=== PATIENT | female | born 1995 | race Caucasian/White ===

== ENCOUNTER 2016-10-02 05:58 | Inpatient (IN) | payer MEDICAID ==
[~2016-10-02] VITALS: Ht 157.5 cm; Wt 95.0 kg
[~2016-10-02 05:58] MED LIST: IRON1TAB60 PO; OXYC-302 PO
[2016-10-02] MEDS: OXYTOCIN 30U/ 0.9% NaCL 500ML 500 ML IV SCH ×4 (06:06→18:55)
[2016-10-02] MEDS: LACTATED RINGERS 1,000 ML IV SCH ×6 (06:06→18:55)
[2016-10-02] MEDS ORDERED: LACTATED RINGERS 1,000 ML IV SCH (06:10)
[2016-10-02] MEDS ORDERED: NEWBORN KIT ONE (06:14)
[2016-10-02] MEDS ORDERED: SODIUM CITRATE/CITRIC ACID 30 ML UDC ONE (06:14)
[2016-10-02] MEDS ORDERED: METOCLOPRAMIDE 5 MG/ML, 2ML ONE (06:14)
[2016-10-02 06:15] VITALS: BP 118/63
[2016-10-02] MEDS: SODIUM CITRATE/CITRIC ACID 30 ML UDC PO ONE ×2 (06:30→07:35)
[2016-10-02] MEDS ORDERED: LACTATED RINGERS 1,000 ML IVBOLUS ONE (06:30)
[2016-10-02] MEDS: METOCLOPRAMIDE 5 MG/ML, 2ML IV ONE ×2 (06:30→07:35)
[2016-10-02] MEDS ORDERED: OXYTOCIN 30U/ 0.9% NaCL 500ML 500 ML ONE (07:03)
[2016-10-02] MEDS ORDERED: FENTANYL PF 100 MCG/2ML IV PRN (07:30)
[2016-10-02] MEDS ORDERED: EPHEDRINE 50 MG/ML, 1ML IVPush PRN (07:30)
[2016-10-02] MEDS ORDERED: PROMETHAZINE 25 MG/ML, 1ML IV PRN (07:30)
[2016-10-02] MEDS ORDERED: ONDANSETRON 2MG/ML, 2ML IVPush PRN (07:30)
[2016-10-02] MEDS ORDERED: MEPERIDINE/PF 25MG/0.5ML IVPush PRN (07:30)
[2016-10-02] MEDS ORDERED: OXYcodone 5 MG/5 ML ORAL.SOL UDC PO PRN (07:30)
[2016-10-02] MEDS ORDERED: RHOGAM FROM BLOOD BANK 1 NOTE EA IM/IV ONE (09:00)
[2016-10-02] MEDS ORDERED: OXYcodone/APAP 5/325MG TABLET PO PRN (09:00)
[2016-10-02] MEDS ORDERED: SIMETHICONE 80 MG CHEW TAB PO PRN (09:00)
[2016-10-02] MEDS ORDERED: DIPH,PERTUSS(ACELL),TET VAC/PF NC IM-VACC PRN (09:00)
[2016-10-02] MEDS ORDERED: MEASLES,MUMPS&RUBELLA VACC/PF 0.5 ML SQ-VACC PRN (09:00)
[2016-10-02] MEDS ORDERED: MISOPROSTOL 200 MCG TABLET PR PRN (09:00)
[2016-10-02] MEDS ORDERED: morphine SULFATE 10 MG/ML, 1ML IVPush PRN (09:00)
[2016-10-02] MEDS ORDERED: ONDANSETRON 2MG/ML, 2ML IV PRN (09:00)
[2016-10-02] MEDS ORDERED: CALCIUM CARBONATE 500 MG TAB.CHEW PO PRN (09:00)
[2016-10-02] MEDS: PRENATAL VIT/IRON/FA 1 EACH TABLET PO SCH (09:00)
[2016-10-02] MEDS ORDERED: OXYcodone 5 MG/5 ML ORAL.SOL UDC ONE (09:48)
[2016-10-02] MEDS ORDERED: MORPHINE SULFATE 4 MG/ML, 1ML ONE (10:17)
[2016-10-02] MEDS: morphine SULFATE 10 MG/ML, 1ML IV PRN ×2 (10:22→10:40)
[2016-10-02 11:00] VITALS: BP 113/65
[2016-10-02] MEDS: KETOROLAC 30 MG/1 ML IV SCH ×3 (11:45→23:33)
[2016-10-02] MEDS: OXYcodone IR 5MG TABLET PO PRN ×3 (14:05→22:04)
[2016-10-02 17:35] VITALS: BP 106/58
[2016-10-02 21:00] VITALS: BP 99/56
[2016-10-02] MEDS: DOCUSATE 100 MG CAPSULE PO PRN (22:04)
[2016-10-03] MEDS: LACTATED RINGERS 1,000 ML IV SCH ×3 (00:55→08:55)
[2016-10-03 01:00] VITALS: BP 107/66
[2016-10-03] MEDS: DOCUSATE 100 MG CAPSULE PO PRN ×3 (02:37→20:05)
[2016-10-03] MEDS: OXYcodone IR 5MG TABLET PO PRN ×5 (02:37→20:13)
[2016-10-03 04:30] VITALS: BP 108/60
[2016-10-03] MEDS: OXYTOCIN 30U/ 0.9% NaCL 500ML 500 ML IV SCH (04:55)
[2016-10-03] MEDS: KETOROLAC 30 MG/1 ML IV SCH ×4 (05:25→23:37)
[2016-10-03 07:20] VITALS: BP 90/51
[2016-10-03] MEDS: PRENATAL VIT/IRON/FA 1 EACH TABLET PO SCH (07:25)
[2016-10-03 19:00] VITALS: BP 99/49
[2016-10-04] MEDS: OXYcodone IR 5MG TABLET PO PRN ×5 (02:17→21:49)
[2016-10-04] MEDS: KETOROLAC 30 MG/1 ML IV SCH (05:19)
[2016-10-04 07:45] VITALS: BP 104/59
[2016-10-04] MEDS: PRENATAL VIT/IRON/FA 1 EACH TABLET PO SCH (07:54)
[2016-10-04] MEDS: DOCUSATE 100 MG CAPSULE PO PRN ×2 (07:54→21:49)
[2016-10-04] MEDS: IBUPROFEN 600 MG TABLET PO PRN ×3 (11:17→23:57)
[2016-10-04 20:00] VITALS: BP 110/55
[2016-10-05] MEDS: OXYcodone IR 5MG TABLET PO PRN ×3 (02:08→12:19)
[2016-10-05] MEDS: IBUPROFEN 600 MG TABLET PO PRN ×2 (06:24→12:19)
[2016-10-05] MEDS ORDERED: IBUP-1222 PO (07:33)
[2016-10-05 08:15] VITALS: BP 100/62
[2016-10-05] MEDS: DOCUSATE 100 MG CAPSULE PO PRN (08:17)
[2016-10-05] MEDS: PRENATAL VIT/IRON/FA 1 EACH TABLET PO SCH (08:17)
== END 2016-10-05 12:59 | disposition home or self-care (01) | DRG 766 ==
LOC: LDIP 05:58 → 2NW 10:44
PROVIDERS: ADMIT Obstetrics & Gynecology Gynecology; ATTEND Obstetrics & Gynecology Gynecology
PROC: 10D00Z1 Extraction of Products of Conception, Low, Open Approach (ICD-10-PCS; principal; 2016-10-02)
DX: O34.211 Maternal care for low transverse scar from previous cesarean delivery (principal); O99.824 Streptococcus B carrier state complicating childbirth; O99.344 Other mental disorders complicating childbirth; F32.9 Major depressive disorder, single episode, unspecified; O99.52 Diseases of the respiratory system complicating childbirth; J45.909 Unspecified asthma, uncomplicated; Z37.0 Single live birth; Z3A.39 39 weeks gestation of pregnancy; Z79.899 Other long term (current) drug therapy; Z80.3 Family history of malignant neoplasm of breast; Z80.41 Family history of malignant neoplasm of ovary; Z81.8 Family history of other mental and behavioral disorders
CPT/HCPCS: 36415; 82803; 85025; 86850; 86900; J1885; J2270; J2590; J2765; J7120

== ENCOUNTER 2017-11-12 10:19 | Inpatient (IN) | payer BC, MEDICAID ==
[~2017-11-12] VITALS: Ht 157.5 cm; Wt 98.0 kg
[~2017-11-12 10:19] MED LIST changes: +IBUP-1222 PO; +METOCLOPRAMIDE 5 MG/ML, 2ML ONE; +NEWBORN KIT ONE; +SODIUM CITRATE/CITRIC ACID 30 ML UDC ONE
[2017-11-12 10:29] VITALS: BP 109/62
[2017-11-12] MEDS ORDERED: METOCLOPRAMIDE 5 MG/ML, 2ML IV ONE (10:30)
[2017-11-12] MEDS ORDERED: SODIUM CITRATE/CITRIC ACID 30 ML UDC PO ONE (10:30)
[2017-11-12] MEDS ORDERED: OXYTOCIN 30U/ 0.9% NaCL 500ML 500 ML IV SCH (10:30)
[2017-11-12] MEDS ORDERED: LACTATED RINGERS 1,000 ML IV SCH (10:30)
[2017-11-12] MEDS ORDERED: LACTATED RINGERS 1,000 ML IVBOLUS ONE (10:30)
[2017-11-12 11:27] LABS: BASOPHILS # (AUTO) 0.03 x10^3/uL (0-0.1); BASOPHILS % (AUTO) 0 % (0-1); EOSINOPHILS # (AUTO) 0.05 x10^3/uL (0-0.4); EOSINOPHILS % (AUTO) 1 % (1-7); LYMPHOCYTES # (AUTO) 2.13 x10^3/uL (1-3.4); LYMPHOCYTES % (AUTO) 21 % (22-44); MD NO; MEAN CORPUSCULAR HEMOGLOBIN 24.2 pg (27.0-34.8); MEAN CORPUSCULAR VOLUME 73.2 fL (80-100); MEAN PLATELET VOLUME 6.9 fL (7.4-10.4); MONOCYTES # (AUTO) 0.65 x10^3/uL (0.2-0.8); MONOCYTES % (AUTO) 6 % (2-9); NEUTROPHILS # (AUTO) 7.56 x10^3/uL (1.8-6.8); NEUTROPHILS % (AUTO) 73 % (42-75); PLATELET COUNT 247 x10^3/uL (130-400); RED BLOOD COUNT 4.91 x10^6/uL (3.82-5.3); RED CELL DISTRIBUTION WIDTH 19.3 % (9.6-15.2)
[2017-11-12] MEDS ORDERED: CEFAZOLIN 1,000 MG ONE (11:59)
[2017-11-12] MEDS ORDERED: OXYTOCIN 10 UNITS/ML, 1ML ONE (11:59)
[2017-11-12] MEDS ORDERED: FENTANYL PF 100 MCG/2ML ONE (11:59)
[2017-11-12] MEDS: OXYTOCIN 30U/ 0.9% NaCL 500ML 500 ML IV SCH ×2 (12:24→22:24)
[2017-11-12] MEDS: LACTATED RINGERS 1,000 ML IV SCH ×4 (12:24→22:24)
[2017-11-12] MEDS ORDERED: MISOPROSTOL 200 MCG TABLET PR PRN (12:30)
[2017-11-12] MEDS ORDERED: DIPH,PERTUSS(ACELL),TET VAC/PF NC IM-VACC PRN (12:30)
[2017-11-12] MEDS ORDERED: MEASLES,MUMPS&RUBELLA VACC/PF 0.5 ML SQ-VACC PRN (12:30)
[2017-11-12] MEDS ORDERED: ONDANSETRON 2MG/ML, 2ML IV PRN ×2 (12:30→14:00)
[2017-11-12] MEDS ORDERED: CALCIUM CARBONATE 500 MG TAB.CHEW PO PRN (12:30)
[2017-11-12] MEDS ORDERED: morphine SULFATE 10 MG/ML, 1ML IVPush PRN (12:30)
[2017-11-12] MEDS ORDERED: RHOGAM FROM BLOOD BANK 1 NOTE EA IM/IV ONE (12:30)
[2017-11-12] MEDS ORDERED: EPHEDRINE 50 MG/ML, 1ML ONE (12:34)
[2017-11-12] MEDS ORDERED: KETOROLAC 30 MG/1 ML ONE (13:16)
[2017-11-12] MEDS: KETOROLAC 30 MG/1 ML IV SCH ×2 (13:30→19:23)
[2017-11-12] MEDS ORDERED: OXYcodone 5 MG/5 ML ORAL.SOL UDC PO PRN (14:00)
[2017-11-12] MEDS ORDERED: MEPERIDINE/PF 25MG/0.5ML IVPush PRN (14:00)
[2017-11-12] MEDS ORDERED: EPHEDRINE 50 MG/ML, 1ML IVPush PRN (14:00)
[2017-11-12] MEDS ORDERED: FENTANYL PF 100 MCG/2ML IV PRN (14:00)
[2017-11-12] MEDS ORDERED: PROMETHAZINE 25 MG/ML, 1ML IV PRN (14:00)
[2017-11-12] MEDS ORDERED: MORPHINE SULFATE 4 MG/ML, 1ML IVPush PRN (14:00)
[2017-11-12] MEDS ORDERED: OXYcodone 5 MG/5 ML ORAL.SOL UDC ONE (14:44)
[2017-11-12 16:20] VITALS: BP 83/52
[2017-11-12] MEDS: OXYcodone IR 5MG TABLET PO PRN ×2 (18:26→22:28)
[2017-11-12 20:04] VITALS: BP 101/64
[2017-11-12 23:35] VITALS: BP 97/60
[2017-11-13] MEDS: KETOROLAC 30 MG/1 ML IV SCH ×4 (01:17→20:10)
[2017-11-13] MEDS: OXYcodone IR 5MG TABLET PO PRN ×5 (02:39→20:58)
[2017-11-13 02:50] VITALS: BP 106/72
[2017-11-13] MEDS: LACTATED RINGERS 1,000 ML IV SCH ×5 (04:24→20:24)
[2017-11-13 07:25] VITALS: BP 101/67
[2017-11-13] MEDS: DOCUSATE 100 MG CAPSULE PO PRN ×2 (07:46→20:10)
[2017-11-13] MEDS: PRENATAL VIT/IRON/FA 1 EACH TABLET PO SCH (07:46)
[2017-11-13] MEDS: OXYTOCIN 30U/ 0.9% NaCL 500ML 500 ML IV SCH ×2 (08:24→18:24)
[2017-11-13 12:05] VITALS: BP 104/68
[2017-11-13 20:05] VITALS: BP 100/66
[2017-11-13] MEDS: SIMETHICONE 80 MG CHEW TAB PO PRN (20:10)
[2017-11-14] MEDS: KETOROLAC 30 MG/1 ML IV SCH ×2 (02:09→07:44)
[2017-11-14] MEDS: SIMETHICONE 80 MG CHEW TAB PO PRN ×3 (03:05→17:50)
[2017-11-14] MEDS: OXYcodone/APAP 5/325MG TABLET PO PRN ×3 (03:05→17:54)
[2017-11-14] MEDS: OXYTOCIN 30U/ 0.9% NaCL 500ML 500 ML IV SCH ×2 (04:24→14:24)
[2017-11-14] MEDS: LACTATED RINGERS 1,000 ML IV SCH ×5 (04:24→20:24)
[2017-11-14] MEDS: PRENATAL VIT/IRON/FA 1 EACH TABLET PO SCH (07:44)
[2017-11-14] MEDS: DOCUSATE 100 MG CAPSULE PO PRN ×2 (07:44→20:11)
[2017-11-14 08:00] VITALS: BP 97/64
[2017-11-14 09:40] LABS: BASOPHILS # (AUTO) 0.05 x10^3/uL (0-0.1); BASOPHILS % (AUTO) 1 % (0-1); EOSINOPHILS % (AUTO) 1 % (1-7); LYMPHOCYTES # (AUTO) 2.12 x10^3/uL (1-3.4); LYMPHOCYTES % (AUTO) 24 % (22-44); MD NO; MEAN CORPUSCULAR HEMOGLOBIN 23.4 pg (27.0-34.8); MEAN CORPUSCULAR HGB CONC 32.3 g/dL (32.4-35.8); MEAN CORPUSCULAR VOLUME 72.5 fL (80-100); MEAN PLATELET VOLUME 7.2 fL (7.4-10.4); MONOCYTES # (AUTO) 0.76 x10^3/uL (0.2-0.8); MONOCYTES % (AUTO) 9 % (2-9); NEUTROPHILS # (AUTO) 5.66 x10^3/uL (1.8-6.8); NEUTROPHILS % (AUTO) 65 % (42-75); PLATELET COUNT 242 x10^3/uL (130-400); RED BLOOD COUNT 4.87 x10^6/uL (3.82-5.3); RED CELL DISTRIBUTION WIDTH 20.1 % (9.6-15.2)
[2017-11-14] MEDS: IBUPROFEN 600 MG TABLET PO PRN ×2 (13:43→20:11)
[2017-11-14 19:25] VITALS: BP 100/65
[2017-11-14] MEDS: OXYcodone IR 5MG TABLET PO PRN (22:58)
[2017-11-15] MEDS: LACTATED RINGERS 1,000 ML IV SCH ×6 (00:24→20:24)
[2017-11-15] MEDS: OXYTOCIN 30U/ 0.9% NaCL 500ML 500 ML IV SCH ×3 (00:24→20:24)
[2017-11-15] MEDS: IBUPROFEN 600 MG TABLET PO PRN ×4 (02:31→22:28)
[2017-11-15] MEDS: SIMETHICONE 80 MG CHEW TAB PO PRN ×3 (02:31→15:18)
[2017-11-15] MEDS: OXYcodone IR 5MG TABLET PO PRN (06:18)
[2017-11-15 08:20] VITALS: BP 105/68
[2017-11-15] MEDS: PRENATAL VIT/IRON/FA 1 EACH TABLET PO SCH (09:17)
[2017-11-15] MEDS: DOCUSATE 100 MG CAPSULE PO PRN ×2 (09:18→20:10)
[2017-11-15] MEDS: OXYcodone/APAP 5/325MG TABLET PO PRN ×3 (11:24→20:10)
[2017-11-15 19:50] VITALS: BP 95/63
[2017-11-16] MEDS: OXYcodone IR 5MG TABLET PO PRN (00:06)
[2017-11-16] MEDS: LACTATED RINGERS 1,000 ML IV SCH ×2 (04:24→06:24)
[2017-11-16] MEDS: OXYTOCIN 30U/ 0.9% NaCL 500ML 500 ML IV SCH (06:24)
[2017-11-16] MEDS: OXYcodone/APAP 5/325MG TABLET PO PRN ×2 (06:25→11:54)
[2017-11-16] MEDS: IBUPROFEN 600 MG TABLET PO PRN ×2 (06:25→11:54)
[2017-11-16 07:30] VITALS: BP 98/60
[2017-11-16] MEDS: PRENATAL VIT/IRON/FA 1 EACH TABLET PO SCH (09:23)
[2017-11-16] MEDS: DOCUSATE 100 MG CAPSULE PO PRN (09:23)
[2017-11-16] MEDS ORDERED: OXYC-302 PO (10:27)
== END 2017-11-16 14:20 | disposition home or self-care (01) | DRG 766 ==
LOC: LDIP 10:19 → 2NW 16:25
PROVIDERS: ADMIT Obstetrics & Gynecology Gynecology; ATTEND Obstetrics & Gynecology Gynecology
PROC: 10D00Z1 Extraction of Products of Conception, Low, Open Approach (ICD-10-PCS; principal; 2017-11-12)
DX: O34.211 Maternal care for low transverse scar from previous cesarean delivery (principal); O99.52 Diseases of the respiratory system complicating childbirth; O99.344 Other mental disorders complicating childbirth; F32.9 Major depressive disorder, single episode, unspecified; J45.909 Unspecified asthma, uncomplicated; Z3A.39 39 weeks gestation of pregnancy; Z37.0 Single live birth
CPT/HCPCS: 36415; 82803; 85025; 86850; 86900; J0690; J1885; J3010; J2590; J2765; J7120

== ENCOUNTER 2018-05-04 21:43 | Emergency (ER) | payer BC, MEDICAID ==
[~2018-05-04] VITALS: Ht 157.5 cm; Wt 88.0 kg
[~2018-05-04 21:43] MED LIST changes: -METOCLOPRAMIDE 5 MG/ML, 2ML ONE; -NEWBORN KIT ONE; -SODIUM CITRATE/CITRIC ACID 30 ML UDC ONE
[2018-05-04 21:58] VITALS: BP 119/74
== END 2018-05-04 22:58 | disposition home or self-care (01) ==
LOC: ED 22:26
DX: B85.0 Pediculosis due to Pediculus humanus capitis (principal)
CPT/HCPCS: 99283